=== PATIENT | male | born 1995 | race Caucasian/White ===

== ENCOUNTER 2018-03-22 23:11 | Emergency (ER) | payer OTHER, MEDICAID ==
[~2018-03-22] VITALS: Ht 182.9 cm; Wt 136.1 kg
[~2018-03-22 23:11] MED LIST: BACTRIM DS TAB1 EACH PO; KEFLEX500 M1 PO
[2018-03-22] MEDS ORDERED: NORCO 5-325 TA1 EAC1 PO (23:38)
[2018-03-22] MEDS ORDERED: SSD CREAM 1% 5050 GM TOP (23:41)
[2018-03-23 00:05] VITALS: BP 140/80
== END 2018-03-23 00:07 | disposition home or self-care (01) ==
LOC: M.ERS 23:11
DX: T23.151A Burn of first degree of right palm, initial encounter (principal); T31.0 Burns involving less than 10% of body surface; F17.210 Nicotine dependence, cigarettes, uncomplicated; Z90.49 Acquired absence of other specified parts of digestive tract; X08.8XXA Exposure to other specified smoke, fire and flames, initial encounter; Y93.89 Activity, other specified; Y92.89 Other specified places as the place of occurrence of the external cause; Y99.8 Other external cause status